=== PATIENT | female | born 1955 | race Caucasian/White ===

== ENCOUNTER 2024-04-07 14:17 | Emergency (ER) | payer MEDICARE, SELFPAY ==
--- NOTE | ~2024-04-07 | XR_ITS ---
EXAMINATION: XR chest PICC line Exam Date/Time: 04/07/2024 15:05 PROJECT HIRE HISTORY: PICC line established, checking placement Comparison: None. RESULT: Lines, tubes, and devices: Partially visualized cervical fusion hardware. Right upper extremity PICC , terminating in the distal SVC. Lungs and pleura: Left lower lung scar/atelectasis, otherwise clear. Cardiomediastinal silhouette: Unremarkable. Other: No acute osseous or upper abdominal finding. IMPRESSION: Right upper extremity PICC, in good position. Reviewed, dictated and finalized at location K. ECT HIRE
--- NOTE | ~2024-04-07 | XR_ITS ---
EXAM: XR abdomen/kub 1V DATE: 04/07/2024 15:24 HISTORY: constipation . COMPARISON: None available. FINDINGS: Clear lung bases. Paucity of small bowel gas. Retained contrast throughout the colon which appears normal. Moderate volume of intracolonic cc. No organomegaly. No abnormal abdominal calcifica tion. Regional bones and soft tissues normal for age. IMPRESSION: Paucity of small bowel gas which limits evaluation for small bowel obstruction or ileus. Contrast-filled large bowel with moderate volume of colonic feces and no dilation. Reviewed, dictated and finalized at location K. NT ENGINEER IMPRESSION: Paucity of small bowel gas which limits evaluation for small bowel obstruction or ileus. Contrast-filled large bowel with moderate volume of colon ic feces and no dilation.
[2024-04-07 14:19] VITALS: BP 108/60; PULSE 94; RESP 14; TEMP 36.9; O2SAT 100
[2024-04-07 15:35] LABS: Basophils Percent Auto 0.3 % (0.2-1.2); Eosinophils Absolute Auto 0.1 K/mm3 (0-0.3); Eosinophils Percent Auto 1.6 % (0-4.4); Hematocrit 34.7 % (37.0-47.0); Hemoglobin 11.3 g/dL (12.0-15.0); Immature Granulocyte Absolute 0.06 K/mm3 (0.00-0.031); Immature Granulocyte Percent A 0.9 % (0-0.5); Lymphocytes Percent Auto 11.7 % (18.3-44.2); Mean Corpuscular HGB Conc 32.6 g/dl (32-36); Mean Corpuscular Hemoglobin 30.6 pg (26-34); Mean Platelet Volume 8.7 fl (7.4-10.4); Monocytes Absolute Auto 0.4 K/mm3 (0.1-0.6); Monocytes Percent Auto 6.4 % (2.6-8.5); Neutrophils Absolute Auto 5.4 K/mm3 (1.3-6.7); Neutrophils Percent Auto 79.1 % (45.5-73.1); Platelet Count Result 266 k/mm3 (150-375); Red Blood Count 3.69 M/mm3 (4.2-5.4); White Blood Count 6.9 K/mm3 (4.5-10.0)
[2024-04-07 15:54] LABS: Alanine Aminotransferase 41 U/L (6-35); Albumin Level 3.4 g/dL (3.5-5.1); Alkaline Phosphatase 198 U/L (38-126); Anion Gap 4 mmol/L (4-12); Aspartate Amino Transferase 41 U/L (14-36); Bilirubin,Total 0.4 mg/dL (0.2-1.3); Blood Urea Nitrogen 18 mg/dL (7-17); Calcium 8.6 mg/dL (8.4-10.2); Carbon Dioxide 30 mmol/L (22-30); Chloride 103 mmol/L (98-107); Estimated CRCL calculation 54 ml/min; Estimated Glomerular Filt Rate > 60; Glucose 104 mg/dL (65-110); Potassium 4.1 mmol/L (3.4-5.0); Sodium 137 mmol/L (137-145)
[2024-04-07] MEDS: METHYLNALTREXONE 12 MG/0.6 ML VIAL SUB-Q (15:54)
[2024-04-07 16:50] VITALS: BP 119/74; PULSE 88; RESP 16; TEMP 36.6; O2SAT 95
--- NOTE | 2024-04-07 17:40 | ED_ITS ---
HPI - General Adult General Chief complaint: Recheck/Abnormal Lab/Rx Stated complaint: POST SURGICAL INFECTIONS Time Seen by Provider: 04/07/24 14:48 History of Present Illness HPI narrative: Patient is a 68-year-old female who presents ER for evaluation from [facility]. The patient apparently was leaning to her right side trying to get some denture glue off of the floor and her nurse thought she was altered. Patient remembers events and has no complaints other than some lower abdominal cramping. Says she has not pooped in a few days. She recently was at [facility] where she had surgery of her cervical and thoracic spine. She is currently braced. She denies any numbness or weakness to the arms or legs. Related Data Allergies Allergy/AdvReac Type Severity Reaction Status Date / Time No Known Allergies Allergy Verified 04/07/24 14:30 Review of Systems 2 Review of Systems: All systems reviewed & are unremarkable except as noted in HPI and below Constitutional: Constitutional: Reports no additional constitutional complaints Cardiovascular: Cardiovascular: Reports no additional cardiovascular complaints Respiratory: Respiratory: Reports no additional respiratory complaints Gastrointestinal: Gastrointestinal: Reports no additional gastrointestinal complaints Musculoskeletal: Musculoskeletal: Reports no additional musculoskeletal complaints [facility] Surgical History Surgical History (Updated 04/07/24 @ 17:46 by Hong Esposito MD) History of thoracic surgery Hx of cervical spine surgery Exam 2 Narrative: GENERAL: Well-appearing, well-nourished, and in no acute distress. HEAD: Normocephalic, atraumatic. ENT: Mucous membranes moist. NECK: False Pass J collar in place. Non saturated surgical dressings to the C/T spine. CHEST: Clear to auscultation. No respiratory distress. HEART: Regular rate and rhythm Normal peripheral pulses. ABDOMEN: Soft, nontender, nondistended EXTREMITIES: Normal range of motion. No edema. Gross sensation intact in all extremities. SKIN: Warm, dry, no rash. NEURO: Alert and oriented x3. PSYCH: Normal mood and affect. Course Course Emergency Course: Patient resting comfortably. Given Relistor for constipation. No additional complaints. Lab work unremarkable. [facility] Vital Signs Vital signs: Vital Signs Temperature 98.4 F 04/07/24 14:19 Pulse Rate 94 04/07/24 14:19 Respiratory Rate 14 04/07/24 14:19 Blood Pressure 108/60 04/07/24 14:19 Pulse Oximetry 100 04/07/24 14:19 Oxygen Delivery Room Air 04/07/24 14:19 Temperature 97.8 F 04/07/24 16:50 Pulse Rate 88 04/07/24 16:50 Respiratory Rate 16 04/07/24 16:50 Blood Pressure 119/74 04/07/24 16:50 Pulse Oximetry 95 04/07/24 16:50 Oxygen Delivery Room Air 04/07/24 14:19 Medical Decision Making Vital Signs Vital Signs: Vital Signs Temperature 98.4 F 04/07/24 14:19 Pulse Rate 94 04/07/24 14:19 Respiratory Rate 14 04/07/24 14:19 Blood Pressure 108/60 04/07/24 14:19 Pulse Oximetry 100 04/07/24 14:19 Oxygen Delivery Room Air 04/07/24 14:19 Temperature 97.8 F 04/07/24 16:50 Pulse Rate 88 04/07/24 16:50 Respiratory Rate 16 04/07/24 16:50 Blood Pressure 119/74 04/07/24 16:50 Pulse Oximetry 95 04/07/24 16:50 Oxygen Delivery Room Air 04/07/24 14:19 Lab Data 04/07/24 15:28 04/07/24 15:28 Labs: Lab Results 04/07/24 Range/Units 15:28 WBC 6.9 (4.5-10.0) K/mm3 RBC 3.69 L (4.2-5.4) M/mm3 Hgb 11.3 L (12.0-15.0) g/dL Hct 34.7 L (37.0-47.0) % MCV 94.0 (80-100) fl MCH 30.6 (26-34) pg MCHC 32.6 (32-36) g/dl RDW 15.0 H (11.5-14.5) % Plt Count 266 (150-375) k/mm3 MPV 8.7 (7.4-10.4) fl Immature Gran % (Auto) 0.9 H (0-0.5) % Neut % (Auto) 79.1 H (45.5-73.1) % Lymph % (Auto) 11.7 L (18.3-44.2) % Glascock % (Auto) 6.4 (2.6-8.5) % Eos % (Auto) 1.6 (0-4.4) % Baso % (Auto) 0.3 (0.2-1.2) % Lymph # (Auto) 0.80 L (0.9-3.2) K/mm3 Glascock # (Auto) 0.4 (0.1-0.6) K/mm3 Eos # (Auto) 0.1 (0-0.3) K/mm3 Baso # (Auto) 0.0 (0.0-0.1) K/mm3 Abs Immat Gran (auto) 0.06 H (0.00-0.031) K/mm3 Absolute Neuts (auto) 5.4 (1.3-6.7) K/mm3 Absolute Nucleated RBC 0.000 (0.0-0.012) K/mm3 Nucleated RBC % 0.0 (0.0-0.2) % Sodium 137 (137-145) mmol/L Potassium 4.1 (3.4-5.0) mmol/L Chloride 103 (98-107) mmol/L Carbon Dioxide 30 (22-30) mmol/L Anion Gap 4 (4-12) mmol/L BUN 18 H (7-17) mg/dL Creatinine 0.59 L (0.7-1.0) mg/dL Estim Creat Clear Calc 54 ml/min Estimated GFR > 60 (59 - ) Glucose 104 (65-110) mg/dL Calcium 8.6 (8.4-10.2) mg/dL Total Bilirubin 0.4 (0.2-1.3) mg/dL AST 41 H (14-36) U/L ALT 41 H (6-35) U/L Alkaline Phosphatase 198 H (38-126) U/L Total Protein 7.0 (6.3-8.2) g/dL Albumin 3.4 L (3.5-5.1) g/dL Imaging Data Radiologist's impression: ITS Impressions Chest X-Ray 04/07/24 15:24 IMPRESSION: Right upper extremity PICC, in good position. Abdomen X-Ray 04/07/24 15:25 IMPRESSION: Paucity of small bowel gas which limits evaluation for small bowel obstruction or ileus. Contrast-filled large bowel with moderate volume of colonic feces and no dilation. Discharge Plan Discharge Clinical Impression: Constipation Patient Disposition: Home, Self-Care Condition: Stable Instructions: Constipation (ED) Additional Instructions: Return to the ER if you have fever 100.4? F, you cannot keep down food water, you lose consciousness, or have additional concerns. Patient Language: Pashto Prescriptions: New docusate sodium [Colace] 100 mg capsule 100 mg PO BID Qty: 14 0RF Follow-up/Referrals: Joe Chaney, [Primary Care Provider] - 2 Days
== END 2024-04-07 19:51 ==
PROVIDERS: Emergency Provider Emergency Medicine; PCP Pain Medicine Pain Medicine
DX: K59.00 Constipation, unspecified (principal); Z98.890 Other specified postprocedural states
CPT/HCPCS: 36415; 74018; 80053; 85025; 96372; 99283; J2212